=== PATIENT | male | born 1955 | race Caucasian/White ===

== ENCOUNTER 2024-11-06 10:47 | Inpatient (IN) | payer MEDICARE ==
[~2024-11-06] VITALS: Ht 172.7 cm; Wt 89.8 kg
[2024-11-06 11:09] VITALS: O2SAT 97
[2024-11-06 11:42] LABS: PLATELET COUNT (AUTO) 219 K/uL (150-450); RED BLOOD CELL COUNT(AUTO) 5.79 MIL/uL (4.5-6.0); RED CELL DISTRIBUTION WIDTH 14.7 % (11.5-15.0); WHITE BLOOD COUNT (AUTO) 7.0 K/uL (4.3-11.0)
[2024-11-06] MEDS: CEFEPIME 1 GM in IV D5W 50 ML IV ONE (11:44)
[2024-11-06] MEDS: IV NS 0.9% 1,000 ML BAG IV ONE (11:44)
[2024-11-06 11:52] LABS: INR 1.03 (0.91-1.10)
[2024-11-06 11:57] LABS: LACTIC ACID 1.0 mmol/L (0.4-2.0)
[2024-11-06 12:09] LABS: ASPARTATE AMINOTRANSFERASE 23.0 U/L (15-37); CALCIUM, SERUM 9.0 mg/dL (8.5-10.1); CREATININE 0.9 mg/dL (0.6-1.3); SODIUM SERUM 137.0 mmol/L (136-145); TOTAL PROTEIN, SERUM 7.2 g/dL (6.4-8.2); UREA NITROGEN, BLOOD 13.0 mg/dL (7-18)
[2024-11-06] MEDS: VANCOMYCIN 1 GM in IV D5W 250 ML IV ONE (12:12)
[2024-11-06] MEDS ORDERED: ROSU10TA29 PO (12:18)
[2024-11-06 12:38] LABS: APPEARANCE,URINE CLEAR (CLEAR); BLOOD, URINE Negative Ery/uL (NEGATIVE); LEUKOCYTE ESTERASE ,URINE Negative (NEGATIVE); UGLUCOSE Negative (NEGATIVE)
[2024-11-06 12:54] LABS: NITRITE, URINE NEGATIVE (NEGATIVE)
[2024-11-06] MEDS ORDERED: ONDANSETRON HCL/PF 4 MG/2 ML VIAL IVP PRN (13:00)
[2024-11-06] MEDS: ENOXAPARIN SODIUM 40 MG/0.4 ML DISP.SYRIN SQ SCH (15:01)
[2024-11-06] MEDS: FAMOTIDINE/PF INJ 20 MG/2 ML VIAL IV ONE (15:58)
[2024-11-06 18:03] VITALS: BP 104/75; TEMP 97.9; O2SAT 97
[2024-11-06] MEDS: ACETAMINOPHEN 325 MG TABLET PO PRN (18:30)
[2024-11-06] MEDS: DOXYCYCLINE 100 MG in IV D5W 100 ML IV SCH (20:38)
[2024-11-06 20:43] VITALS: BP 112/82; TEMP 98.2; O2SAT 95
[2024-11-06] MEDS: ATORVASTATIN 10 MG TABLET PO SCH (21:49)
[2024-11-07 06:57] LABS: PLATELET COUNT (AUTO) 198 K/uL (150-450); RED BLOOD CELL COUNT(AUTO) 5.28 MIL/uL (4.5-6.0); RED CELL DISTRIBUTION WIDTH 14.7 % (11.5-15.0); WHITE BLOOD COUNT (AUTO) 4.5 K/uL (4.3-11.0)
[2024-11-07 07:39] LABS: CALCIUM, SERUM 8.4 mg/dL (8.5-10.1); CREATININE 0.7 mg/dL (0.6-1.3); PHOSPHORUS 2.7 mg/dL (2.5-4.9); SODIUM SERUM 141.0 mmol/L (136-145); UREA NITROGEN, BLOOD 9.0 mg/dL (7-18)
[2024-11-07 09:56] VITALS: BP 134/95; TEMP 97.7; O2SAT 98
[2024-11-07 09:57] VITALS: BP 134/95; TEMP 97.7; O2SAT 98
[2024-11-07 16:00] VITALS: BP 119/84; TEMP 97.7; O2SAT 95
[2024-11-07 20:54] VITALS: BP 118/83; TEMP 97.5; O2SAT 98
[2024-11-07] MEDS: ZOLPIDEM TARTRATE 5 MG TABLET PO PRN (21:42)
[2024-11-08 07:30] VITALS: BP 122/90; TEMP 97.7; O2SAT 95
[2024-11-08] MEDS ORDERED: DOXY-326 PO (09:19)
== END 2024-11-08 12:10 | disposition home or self-care (01) | DRG 603 ==
LOC: ER 10:54 → MED 11:58
PROVIDERS: ADMIT Nurse Practitioner Acute Care; ATTEND Nurse Practitioner Acute Care
DX: L03.113 Cellulitis of right upper limb (principal); I25.10 Atherosclerotic heart disease of native coronary artery without angina pectoris; E66.9 Obesity, unspecified; I80.8 Phlebitis and thrombophlebitis of other sites; G83.89 Other specified paralytic syndromes; E29.8 Other testicular dysfunction; L27.1 Localized skin eruption due to drugs and medicaments taken internally; T36.8X5A Adverse effect of other systemic antibiotics, initial encounter; L03.011 Cellulitis of right finger; Z98.890 Other specified postprocedural states; S61.210A Laceration without foreign body of right index finger without damage to nail, initial encounter; X58.XXXA Exposure to other specified factors, initial encounter; Y93.9 Activity, unspecified; Y92.009 Unspecified place in unspecified non-institutional (private) residence as the place of occurrence of the external cause
CPT/HCPCS: 36415; 71045-TC; 80048-TC; 80076-TC; 83605-TC; 83735-TC; 84100-TC; 85025-TC; 85730-TC; 87040-TC; 87086-TC; A4223; G0378; J0692; J1200; J1308; J1650; J3373; J3490; J7030; J7050; J7060

== ENCOUNTER 2025-01-14 13:27 | Emergency (ER) | payer BC, MEDICARE ==
[~2025-01-14] VITALS: Ht 175.3 cm; Wt 83.9 kg
[~2025-01-14 13:27] MED LIST: DOXY-326 PO; ROSU10TA29 PO
[2025-01-14 14:27] LABS: PLATELET COUNT (AUTO) 209 K/uL (150-450); RED BLOOD CELL COUNT(AUTO) 5.60 MIL/uL (4.5-6.0); RED CELL DISTRIBUTION WIDTH 14.7 % (11.5-15.0); WHITE BLOOD COUNT (AUTO) 4.7 K/uL (4.3-11.0)
[2025-01-14] MEDS ORDERED: IV NS 0.9% 250 ML IV ONE ×2 (14:33→14:34)
[2025-01-14] MEDS ORDERED: IOHEXOL-300 100 ML VIAL IV ONE ×2 (14:33→14:34)
[2025-01-14] MEDS ORDERED: CT SWABBABLE VALVE TRANS SET 1 EA INFUS.SET MC ONE (14:34)
[2025-01-14 14:35] LABS: CALCIUM, SERUM 9.0 mg/dL (8.5-10.1); CREATININE 1.0 mg/dL (0.6-1.3); SODIUM SERUM 139.0 mmol/L (136-145); UREA NITROGEN, BLOOD 14.0 mg/dL (7-18)
[2025-01-14 14:40] LABS: INR 1.06 (0.91-1.10)
[2025-01-14 14:42] LABS: ASPARTATE AMINOTRANSFERASE 25.0 U/L (15-37); TOTAL PROTEIN, SERUM 6.8 g/dL (6.4-8.2)
[2025-01-14] MEDS ORDERED: KETOROLAC TROMETHAMINE INJ 30 MG/ML VIAL ONE (15:06)
[2025-01-14] MEDS: IV NS 0.9% 1,000 ML BAG IV ONE (15:11)
[2025-01-14] MEDS: KETOROLAC TROMETHAMINE 15 MG/ML VIAL IV ONE (15:11)
[2025-01-14 15:23] LABS: APPEARANCE,URINE CLEAR (CLEAR); BLOOD, URINE Negative Ery/uL (NEGATIVE); LEUKOCYTE ESTERASE ,URINE Negative (NEGATIVE); UGLUCOSE Negative (NEGATIVE)
[2025-01-14 15:24] LABS: NITRITE, URINE NEGATIVE (NEGATIVE)
[2025-01-14] MEDS ORDERED: TAMS-12 PO (17:05)
[2025-01-14 17:17] VITALS: BP 116/65; TEMP 98; O2SAT 98
== END 2025-01-14 17:19 | disposition home or self-care (01) ==
LOC: ER 13:35
DX: K59.00 Constipation, unspecified (principal); N40.0 Benign prostatic hyperplasia without lower urinary tract symptoms; R10.31 Right lower quadrant pain; Z79.899 Other long term (current) drug therapy; Z86.79 Personal history of other diseases of the circulatory system
CPT/HCPCS: 99285; 74177; 96374; 71045; 96361; 93005; 85025; 80048; 83690; 80076; 81003; 36415; 85730; J1885; J7030; J7050 ×2; Q9967